=== PATIENT | female | born 1975 | race Caucasian/White ===

== ENCOUNTER 2016-12-09 12:35 | Observation (INO) ==
[2016-12-09] MEDS ORDERED: ONDANSETRON 4 MG/2 ML VIAL IV STA (13:47)
[2016-12-09] MEDS ORDERED: SODIUM CHLORIDE 0.9% 1,000 ML IV STA (13:47)
[2016-12-09] MEDS ORDERED: ONDANSETRON 4 MG/2 ML VIAL ONE (14:24)
[2016-12-09 14:30] LABS: Basophils # 0.1 10*3/uL (0.0-0.2); Basophils % 0.7 % (0.0-0.8); Eosinophils # 0.3 10*3/uL (0.0-0.87); Eosinophils % 2.6 % (0.00-10.9); Hematocrit 42.3 VOL% (35.7-47.0); Hemoglobin 14.2 GM/DL (12.0-16.0); Immature Granulocytes % 0.4 %; Immature Granulocytes Absolute 0.05 #; Mean Corpuscular HGB Conc 33.6 GM/DL (32-36); Mean Corpuscular Hemoglobin 29 PG (27-34); Mean Corpuscular Volume 85.1 FL (87-102); Monocytes # 0.9 10*3/uL (0.11-0.8); Monocytes % 7.7 % (1.7-12.7); Neutrophils # 7.1 10*3/uL (1.4-7.4); Neutrophils % 62.6 % (38.7-73.9); Platelet Count 296 T/CUMM (130-400); Red Blood Count 4.97 MC/CUMM (3.8-5.5); Red Cell Distribution Width 13.9 % (9.3-17.3); White Blood Count 11.4 T/CUMM (4-12)
[2016-12-09] MEDS ORDERED: HYDROmorphone 2 MG/1 ML VIAL IV STA ×2 (14:35→16:38)
[2016-12-09] MEDS ORDERED: HYDROmorphone 2 MG/1 ML VIAL ONE ×2 (14:36→16:41)
[2016-12-09 15:19] LABS: Alanine Aminotransferase 116 U/L (13-56); Albumin 4.4 G/DL (3.4-5.0); Alkaline Phosphatase 79 U/L (45-117); Aspartate Amino Transferase 66 U/L (0-37); Bilirubin,Total < 0.39 MG/DL (0.2-1.0); Blood Urea Nitrogen 22 MG/DL (7-18); Calcium 9.8 MG/DL (8.5-10.1); Glucose 78 MG/DL (74-106); Magnesium 2.4 MG/DL (1.8-2.4); Osmolality,Calculated 276.7 MOS/KG (273-304); Potassium 4.2 MMOL/L (3.5-5.1); Sodium 138 MMOL/L (136-145)
--- NOTE | 2016-12-09 15:30 | Emergency Department Note ---
Krishna Aguilar Rolonda, am scribing for, and in the presence of, Nick Hansen MD 13:56. Jade Aguilar Phillip K, MD, personally performed the services described in this documentation, ascribed by Sangeeta Keller in my presence, and it is both accurate and complete [id number] . Arrival - Arrival Chief Complaint: Abdominal / Flank Pain Stated Complaint: vomiting diarrhea pain surgery 11/29 ED Nursing Triage Note: pt had gastric sleeve placed on 11/29/16 and has had n/ v. +lt side abd pain Mode of Arrival: Ambulatory Limitations: No Limitations Source: Patient, Old Records Reviewed, RN Notes Reviewed Time Seen by Provider: 12/09/16 13:47 - History of Present Illness HPI Narrative: Pt is a 41 y/o female who presents to the ED with c/o left sided abdominal pain with an onset of x1 week ago. Pt has a PMHx of Fibromyalgia and PSHx of appendectomy, cholecystectomy, colonoscopy, and caesarean sections. Pt states that she had a Gastric sleeve on 11/29/[address] Otoole. Pt states that she has had pain s/p surgery which is progressively worsening. She states that she has not been able to maintain any fluids and that she has diarrhea 6-10 times a day. She confirms that she is taking Zofran for nausea but denies fever. No other complaint/pain in ED. Onset (ago): week(s) Consistency: constant Severity: moderate Severity scale (1-10): 5 Date of Last Menstrual Period: hyst Allergies/Adverse Reactions: Allergies Allergy/AdvReac Type Severity Reaction Status Date / Time adhesive tape Allergy Mild RASH Verified 11/29/16 06:48 morphine Allergy Mild RASH Verified 11/29/16 06:48 chloraprep Allergy Mild Redness of Uncoded 11/29/16 06:56 Skin Home Medications: Home Medications Medication Instructions Recorded Confirmed Type clonazePAM TAB [KlonoPIN] 1 mg PO BID tablet 12/01/16 Rx Cyclobenzaprine [Flexeril] 10 mg PO BID 12/09/16 12/09/16 History Gabapentin [Gabapentin] 800 mg PO TID 12/09/16 History Hydrocodone/Acetaminophen [[place] 1 each PO BID 12/09/16 12/09/16 History 10-325 Tablet] Omeprazole [Omeprazole] 40 mg PO DAILY 12/09/16 History Suvorexant [Belsomra] 10 mg PO DAILY 12/09/16 History Review of System - Review of System 12 point system: reviewed and no additional remarkable complaints except as stated - Review of System Constitutional: Absent: chills, fever Eyes: Absent: discharge Head/Ears/Nose/Throat: Absent: earache Respiratory: Absent: as per HPI Cardiovascular: Absent: chest pain Gastrointestinal: Present: abdominal pain (left side), vomiting, diarrhea Genitourinary female: Absent: dysuria Musculoskeletal: Absent: arm pain, back pain Skin: Absent: rash Neurological: Absent: headache Psychiatric: Absent: anxiety Endocrine: Absent: cold intolerance Hematological/Lymphatic: Absent: easy bleeding Allergic/Immunologic: Absent: facial swelling Medical,Surgical,& Family Hx - Medical History Psychological: History of: Depression Neurology: History of: Migraine (OCCASIONAL. DR SPRINGER.) No history of: Seizures HEENT: History of: Eye Problem (GLASSES) Rheumatology: History of;: Fibromyalgia Respiratory: Comment Only: Respiratory Problems (FLU VAC-YES; PNEU VAC- YES. SLEEP APOXIA 2 L AT BEDTIME.) Genitourinary: History of: Kidney Stones (CURRENTLY) Gastrointestinal: History of: GERD, GI Problems (IBS) Other: History of: Anesthesia Reactions (NAUSEA) - Surgical History HEENT Surgeries: Surgical HX of: Eye Surgery (EYE SURGERY X6), Tonsilectomy & Adenoidectomy Abdominal Surgeries: Surgical HX of: Abdominal Surgery (GASTRIC SLEEVE), Appendectomy, Cholecystectomy, Colonoscopy, EGD Reproductive Surgeries: Surgical HX of;: Section (X3), Hysterectomy Orthopedic Surgeries: Surgical HX of;: Implanted Devices (TITANIUM PLATES AND SCREWS.) - Family History Family History: Reports;: Family Cancer - Social History Smoking Status: Never smoker Frequency of Alcohol Use: None Type of Drug Use: None Exam Vital Signs: Vital Signs Temperature 97.6 F 12/09/16 12:45 Pulse Rate 92 H 12/09/16 14:45 Respiratory Rate 18 12/09/16 14:45 Blood Pressure 159/106 12/09/16 14:45 O2 Sat by Pulse Oximetry 100 12/09/16 14:45 - General General appearance: alert, in no apparent distress - Head Head exam: Present: atraumatic, normocephalic - Eye Eye exam: Present: PERRL, EOMI - ENT ENT exam: Present: mucous membranes moist. Absent: mucous membranes dry - Neck Neck exam: Present: full ROM. Absent: tenderness - Chest Chest inspection: Present: symmetric chest wall rise. Absent: tenderness - Respiratory Respiratory exam: Present: normal lung sounds bilaterally. Absent: wheezes - Cardiovascular Cardiovascular exam: Present: normal rhythm, tachycardia - Abdominal Exam Abdominal exam: Present: soft, tenderness (LUQ and LLQ), hypoactive bowel sounds - Extremities Exam Extremities exam: Present: full ROM. Absent: tenderness - Back Exam Back exam: Present: full ROM. Absent: tenderness - Neurological Exam Neurological exam: Present: alert, oriented X3, CN II-XII intact - Psychiatric Psychiatric exam: Present: normal affect, normal mood - Skin Skin exam: Present: warm, dry, intact, normal color. Absent: rash Course Course Narrative: Dr. Uriarte evaluated patient in the ED. Results - Labs CBC & BMP: 12/09/16 14:23 12/09/16 14:23 Lab Results: I have reviewed the patients labs Labs: Laboratory Tests 12/09/16 14:23 WBC 11.4 RBC 4.97 Hgb 14.2 Hct 42.3 MCV 85.1 L Plt Count 296 [place] # (Auto) 0.9 H Laboratory Tests 12/09/16 14:23 Sodium 138 Potassium 4.2 Chloride 103 Carbon Dioxide 22 Anion Gap 17.2 H BUN 22 H GFR Calculation 135 BUN/Creatinine Ratio 36.00 H Glucose 78 AST 66 H ALT 116 H Globulin 3.6 H Disposition Clinical Impression: Abdominal pain, Vomiting and diarrhea Case discussed with: patient Additional Instructions: Instructions per Dr. Hall
--- NOTE | 2016-12-09 15:38 | CT Report ---
Exam: CT abdomen pelvis w con Date: 12/09/2016 1:48 PM Comparison: None Indication: Gastric band surgery abdominal pain vomiting Total DLP: 1678.8 mGy*cm Technical: Images were obtained from the lung bases to the iliac crest continuation through the pelvis with 100 cc of Omnipaque 350 with axial sagittal coronal imaging available for review. Dose reduction was performed with decreasing kv and mA and automated exposure. Oral contrast was administered. Findings: Lung bases: No obvious infiltrate or effusion. Liver and Spleen: Minimal fatty infiltration liver. The hepatic and portal veins and spleen are unremarkable. Gallbladder and Pancreas: Prior cholecystectomy. The pancreas is unremarkable. Adrenals: Unremarkable Kidneys: Both kidneys are equally perfused and demonstrate no evidence for obstructive uropathy. Stomach: Surgical changes are present along the anterior wall of the stomach laterally. No obvious extravasation of contrast or evidence of pneumoperitoneum otherwise noted. Retroperitoneum: Small para-aortic node on the left present less than 1 cm in size Aorta and IVC: No obvious aneurysm aorta vessels and IVC are unremarkable. Bowel and Mesentery: Moderate fecal debris present. No evidence of diverticulosis or diverticulitis or appendicitis present. No free fluid present. Along the anterior abdominal wall subcutaneous tissue there is a area of soft tissue density measuring 4.2 cm. Pelvis: Bladder: Incompletely distended with contrast and fluid. Fluid: No free fluid identified. Lymph nodes: Small nodes in the inguinal regions bilaterally. Pelvic organs: Phleboliths are present in the true pelvis. The uterus surgically absent. Osseous structures: Degenerative change present thoracolumbar spine. The bony pelvis is otherwise intact. Impression: 1. Surgical changes along the lateral aspect of the stomach extending anteriorly with no obvious extravasation of contrast or pneumoperitoneum 2. Subcutaneous edema present in the anterior abdominal wall measuring up to 4.2 cm just off midline towards the left. 3. Prior hysterectomy with phleboliths in the left true pelvis. 4. Small node in the left retroperitoneum. 5. Previous cholecystectomy PROCEDURE INTERPRETED AT [facility] DEPARTMENT OF RADIOLOGY Final Report Signed by: Dr. Gerson Gil
[2016-12-09] MEDS ORDERED: hydrALAZINE 20 MG/1 ML VIAL IV PRN (16:00)
[2016-12-09] MEDS ORDERED: LACTATED RINGERS 1,000 ML IV ONE (16:08)
--- NOTE | 2016-12-09 16:13 | General Surg History&Physical ---
Assessment and Plan (1) Vomiting and diarrhea Status: Acute Assessment and plan: Impression: Status post vertical sleeve gastrectomy, now with dehydration secondary to nausea, vomiting, and diarrhea Plan: CT scan performed and appears normal for this postoperative patient. There is no evidence of leak. There is no extravasation of contrast or any fluid. There is no significant pneumoperitoneum. We will plan to admit for rehydration. I am concerned for C. difficile given her recent antibiotics and the history of her diarrhea. Will empirically start Flagyl and check stool for C. difficile. We will also give Diflucan for the yeast infection 3 days. Anti-emetics. Suspect she will feel better once her dehydration has improved. Current Visit: Yes History of Present Illness Chief complaint: Nausea vomiting and diarrhea History of present illness: Ms. Araiza is a 41 year old female who underwent vertical sleeve gastrectomy on Monday of last week. She had an uncomplicated hospital course and was discharged 2 days later. At the time of discharge she had no significant nausea and no vomiting. When she got home she began to have diarrhea. She states she has had diarrhea since last . She has 6-10 very loose watery stools per day and states that they "smell sweet". She has had some mild nausea since that time which has been stable but 2 days ago began vomiting. She has had no fever. She also complains of a yeast infection. She had perioperative antibiotics. She also has had antibiotics before surgery for a urinary tract infection. She has no shortness of breath or chest pain. She has no worsening abdominal pain. Only complains of mild to moderate pain that has been well controlled just to the left of midline at the larger incision. She was mildly tachycardic to 115 upon arrival but once she got into the room and was seated in in bed this resolved before her IV fluids were given. Home Medications Medication Instructions Recorded Confirmed Type clonazePAM TAB [KlonoPIN] 1 mg PO BID tablet 12/01/16 12/09/16 Rx Cyclobenzaprine [Flexeril] 10 mg PO BID 12/09/16 12/09/16 History Gabapentin [Gabapentin] 400 mg PO BID 12/09/16 12/09/16 History Hydrocodone/Acetaminophen [[place] 1 each PO BID 12/09/16 12/09/16 History 10-325 Tablet] Omeprazole [Omeprazole] 40 mg PO BID 12/09/16 12/09/16 History Suvorexant [Belsomra] 10 mg PO BEDTIME 12/09/16 12/09/16 History Allergies Allergy/AdvReac Type Severity Reaction Status Date / Time adhesive tape Allergy Mild RASH Verified 11/29/16 06:48 morphine Allergy Mild RASH Verified 11/29/16 06:48 chloraprep Allergy Mild Redness of Uncoded 11/29/16 06:56 Skin Medical,Surgical,& Family Hx - Medical History Psychological: History of: Depression Neurology: History of: Migraine (OCCASIONAL. DR SPRINGER.) No history of: Seizures HEENT: History of: Eye Problem (GLASSES) Rheumatology: History of;: Fibromyalgia Respiratory: Comment Only: Respiratory Problems (FLU VAC-YES; PNEU VAC- YES. SLEEP APOXIA 2 L AT BEDTIME.) Genitourinary: History of: Kidney Stones (CURRENTLY) Gastrointestinal: History of: GERD, GI Problems (IBS) Other: History of: Anesthesia Reactions (NAUSEA) - Surgical History HEENT Surgeries: Surgical HX of: Eye Surgery (EYE SURGERY X6), Tonsilectomy & Adenoidectomy Abdominal Surgeries: Surgical HX of: Abdominal Surgery (GASTRIC SLEEVE), Appendectomy, Cholecystectomy, Colonoscopy, EGD Reproductive Surgeries: Surgical HX of;: Section (X3), Hysterectomy Orthopedic Surgeries: Surgical HX of;: Implanted Devices (TITANIUM PLATES AND SCREWS.) Additional Surgical History: Recent vertical sleeve gastrectomy - Family History Family History: noncontributory Family History: Reports;: Family Cancer - Social History Smoking Status: Never smoker Frequency of Alcohol Use: None Type of Drug Use: None Exam - Constitutional Vitals: Period Temp Pulse Resp BP Sys/Ward Pulse Ox Last 24 Hr 97.6 F-97.6 F 85-115 16-20 120-159/79-107 94-100 General appearance: no acute distress - Head Head exam: Present: normocephalic - ENT Mouth exam: Present: dry mucosa - Respiratory Respiratory exam: Present: clear to auscultation bilaterally - Cardiovascular Cardiovascular exam: Present: RRR - GI/Abdominal GI/Abdominal exam: Present: normal bowel sounds, soft (Morbidly obese, abdomen is soft and appropriately tender near the incisions.) - Extremities Exam Extremities exam: Present: normal inspection - Back Exam Back exam: Present: normal inspection - Neurological Exam Neurological exam: Present: alert, oriented X3 Speech: Present: normal - Skin Skin exam: Present: normal color 12 point system: reviewed and no additional remarkable complaints except as stated Results - Labs CBC & BMP: 12/09/16 14:23 12/09/16 14:23 Lab Results: I have reviewed the past 24 hour labs
[2016-12-09] MEDS ORDERED: PROCHLORPERAZINE 5 MG TABLET PO PRN (16:21)
[2016-12-09] MEDS ORDERED: HYOSCYAMINE 0.5 MG/1 ML AMP IV SCH (16:30)
[2016-12-09] MEDS: FLUCONAZOLE 100 MG TABLET PO SCH (18:17)
[2016-12-09] MEDS: ONDANSETRON 4 MG/2 ML VIAL IV PRN (18:31)
[2016-12-09] MEDS: HYDROcod/ACETAMIN 7.5-325 MG/15 ML UDCUP PO PRN ×2 (18:31→22:22)
[2016-12-09] MEDS: metroNIDAZOLE INJ 500 MG in PREMIX 1 EACH IV SCH (18:31)
[2016-12-09] MEDS: LACTATED RINGERS 1,000 ML IV SCH (19:27)
[2016-12-09] MEDS: PROMETHAZINE INJ 25 MG in SODIUM CHLORIDE 0.9% 50 ML IV PRN (23:12)
[2016-12-10] MEDS: metroNIDAZOLE INJ 500 MG in PREMIX 1 EACH IV SCH ×4 (00:15→17:24)
[2016-12-10] MEDS: LACTATED RINGERS 1,000 ML IV SCH ×5 (03:46→20:09)
[2016-12-10 05:41] LABS: Calcium 8.8 MG/DL (8.5-10.1); Osmolality,Calculated 282.1 MOS/KG (273-304); Potassium 3.8 MMOL/L (3.5-5.1)
[2016-12-10] MEDS: PANTOPRAZOLE 40 MG VIAL IV SCH (08:41)
[2016-12-10] MEDS: HYDROcod/ACETAMIN 7.5-325 MG/15 ML UDCUP PO PRN ×3 (08:42→20:22)
[2016-12-10] MEDS: ENOXAPARIN 40 MG/0.4 ML SYRINGE SUBCUT SCH (08:42)
[2016-12-10] MEDS: ONDANSETRON 4 MG/2 ML VIAL IV PRN ×2 (08:42→15:25)
[2016-12-10] MEDS: FLUCONAZOLE 100 MG TABLET PO SCH (08:42)
[2016-12-10] MEDS: PROMETHAZINE INJ 25 MG in SODIUM CHLORIDE 0.9% 50 ML IV PRN ×2 (10:04→20:09)
[2016-12-10] MEDS: SIMETHICONE CHEW 80 MG TABLET PO SCH ×2 (15:25→20:24)
--- NOTE | 2016-12-10 18:33 | General Surgery Progress Note ---
Assessment and Plan (1) Vomiting and diarrhea Status: Acute Assessment and plan: This has resolved. Diarrhea is firming up. No further vomiting. Tolerating liquids well. Continue IV fluids and hydration. C. difficile was negative. Will stop antibiotics and continue to hydrate as needed Current Visit: Yes Subjective Patient reports: Present: no new complaints, feels better, pain is less, bowel movement (The patient states that her stools are more formed today), nausea, afebrile. Absent: vomiting Exam - Constitutional Vitals: Period Temp Pulse Resp BP Sys/Ward Pulse Ox Last 24 Hr 97.2 F-98.2 F 72-87 18-20 114-143/60-73 93-99 General appearance: no acute distress, over weight - Head Head exam: Present: normal inspection, normocephalic - Eye Eye exam: Present: EOMI. Absent: scleral icterus Pupils: Present: CASSIE - ENT ENT exam: Present: normal exam Mouth exam: Present: normal external inspection, normal voice - Neck Neck exam: Present: normal inspection, trachea midline - Respiratory Respiratory exam: Present: clear to auscultation bilaterally. Absent: accessory muscle use, chest wall tenderness - Cardiovascular Cardiovascular exam: Present: RRR. Absent: systolic murmur, tachycardia - GI/Abdominal GI/Abdominal exam: Present: normal bowel sounds, tenderness (Expected postoperative tenderness with clean incisions), soft. Absent: rebound - Extremities Exam Extremities exam: Present: normal inspection, normal capillary refill - Back Exam Back exam: Present: normal inspection - Neurological Exam Neurological exam: Present: alert, oriented X3 Speech: Present: normal - Skin Skin exam: Present: normal color, warm Results - Labs CBC & BMP: 12/09/16 14:23 12/10/16 03:02 Quality Measures - Stroke Symptom Onset Unknown: No
[2016-12-11] MEDS: LACTATED RINGERS 1,000 ML IV SCH ×2 (03:24→10:05)
[2016-12-11] MEDS: PANTOPRAZOLE 40 MG VIAL IV SCH (08:24)
[2016-12-11] MEDS: FLUCONAZOLE 100 MG TABLET PO SCH (08:26)
[2016-12-11] MEDS: SIMETHICONE CHEW 80 MG TABLET PO SCH (08:26)
[2016-12-11] MEDS: ENOXAPARIN 40 MG/0.4 ML SYRINGE SUBCUT SCH (08:26)
[2016-12-11] MEDS: HYDROcod/ACETAMIN 7.5-325 MG/15 ML UDCUP PO PRN (10:48)
[2016-12-11] MEDS: ONDANSETRON 4 MG/2 ML VIAL IV PRN (10:49)
[2016-12-11 11:41] VITALS: BP 123/72
--- NOTE | 2016-12-11 12:14 | Discharge Summary ---
Hospital Course - Hospital Course Hospital Course: This patient was admitted with volume depletion and placed on IV fluids. She had diarrhea and C. difficile was negative 2. She states that she has had problems with diarrhea but only got better with Questran and that has been stopped since her surgery so she thinks this is why she is having diarrhea. She was tolerating clear liquids with no nausea or vomiting and she was requesting to be discharged home. She was discharged home with follow-up with Dr. Chaidez on Monday. Diagnosis - Discharge Diagnosis (1) Vomiting and diarrhea Status: Acute Specialty Discharge - Follow Up or Referrals Follow up with: Devan Chaidez MD [Physician] - (KEEP SCHEDULED FOLLOW UP APPOINTMENT ) Discharge Plan - Discharge Data Disposition: Disch To Home/Self Care Condition at Discharge: Stable Discharge Diet: advance to your usual diet Activity: no lifting Hygiene: may shower Weight Bearing at Discharge: weight bear as tolerated Driving: not until seen by doctor Contact your physician if you experience:: fever over 101, Difficulty voiding, Redness or swelling, Nausea/Vomiting, Shortness of breath, Bleeding, pain uncontrolled by pain medications Wound / Dressing Care Instructions: It is okay to shower. Do not scrub the incision aggressively or submerge it under water. - Discharge Medications New HYDROcod/ACETAM 7.5-325MG/15ML 15 ml PO Q4H PRN #300 ml PRN Reason: Pain Moderate (4-7) Continue Gabapentin 400 mg PO BID Omeprazole 40 mg PO BID Multivitamin [Multivitamins] 1 each PO DAILY clonazePAM TAB [KlonoPIN] 1 mg PO BID tablet Suvorexant [Belsomra] 10 mg PO BEDTIME Cyclobenzaprine [Flexeril] 10 mg PO BID Discontinued Hydrocodone/Acetaminophen [[place] 10-325 Tablet] 1 each PO BID - Follow Up or Referral Follow Up: Devan Chaidez MD [Physician] - (KEEP SCHEDULED FOLLOW UP APPOINTMENT ) - Forms/Instructions Instructions: Acute Nausea and Vomiting (DC) Exam - Constitutional Vitals: Period Temp Pulse Resp BP Sys/Ward Pulse Ox Last 24 Hr 97.2 F-98.2 F 52-77 18-20 115-150/71-81 95-99 General appearance: no acute distress, over weight - Head Head exam: Present: normal inspection, normocephalic - Eye Eye exam: Present: EOMI Pupils: Present: CASSIE - ENT ENT exam: Present: normal exam - Neck Neck exam: Present: normal inspection - Respiratory Respiratory exam: Present: clear to auscultation bilaterally. Absent: accessory muscle use, chest wall tenderness - Cardiovascular Cardiovascular exam: Present: regular rate and rhythm. Absent: systolic murmur , tachycardia - GI/Abdominal GI/Abdominal exam: Present: tenderness (Expected postoperative tenderness), soft. Absent: rebound - Extremities Exam Extremities exam: Present: normal inspection, normal capillary refill - Back Exam Back exam: Present: normal inspection - Neurological Exam Neurological exam: Present: alert, oriented X3 - Psychiatric Psychiatric exam: Present: normal affect, normal mood - Skin Skin exam: Present: normal color, warm Discharge Results Procedures and tests throughout hospitalization: Pending Orders 12/11/16 11:45 cdiff [C. Diff Toxins A & B] Routine DS: Provider Date of admission: 12/09/16 16:01 Primary care physician: [place]ia Ventura MD Attending physician on admission: Devan Chaidez MD Consults: 12/09/16 17:54 Consult to Dietitian [CONS] Routine Reason for Dietitian: Dietary Consult Consult to Pastoral Services [CONS] Routine Comment: Pastoral Screen: Request Application Support Consultant Visit Pastoral Screen Source of Request: Patient Discharging clinician: Manuel Uriarte MD Expected date of discharge: 12/11/16
== END 2016-12-11 13:50 | disposition home or self-care (01) ==
LOC: N.ED 12:35 → N.EDINP 12:35 → N.3E 16:55
PROVIDERS: ADMIT Surgery; ATTEND Surgery

== ENCOUNTER 2017-01-02 10:53 | Observation (INO) ==
[2017-01-02] MEDS ORDERED: PROMETHAZINE 25 MG/1 ML VIAL IM PRN (13:00)
[2017-01-02] MEDS ORDERED: LACTATED RINGERS 1,000 ML IV ONE (13:19)
[2017-01-02] MEDS ORDERED: SCOPOLAMINE 1.5 MG PATCH TRANSDERM SCH (13:30)
[2017-01-02] MEDS: HYDROmorphone 2 MG/1 ML VIAL IV PRN ×3 (13:30→22:57)
[2017-01-02] MEDS: ONDANSETRON 4 MG/2 ML VIAL IV PRN ×3 (13:33→23:13)
[2017-01-02] MEDS: LACTATED RINGERS 1,000 ML IV SCH (13:35)
[2017-01-02 13:46] LABS: Basophils # 0.1 10*3/uL (0.0-0.2); Basophils % 0.6 % (0.0-0.8); Eosinophils # 0.3 10*3/uL (0.0-0.87); Eosinophils % 3.4 % (0.00-10.9); Hematocrit 41.2 VOL% (35.7-47.0); Hemoglobin 13.9 GM/DL (12.0-16.0); Immature Granulocytes % 0.2 %; Immature Granulocytes Absolute 0.02 #; Lymphocytes # 2.1 10*3/uL (1.4-4.0); Lymphocytes % 25.7 % (21.3-54.2); Mean Corpuscular HGB Conc 33.7 GM/DL (32-36); Mean Corpuscular Hemoglobin 29 PG (27-34); Mean Corpuscular Volume 85.3 FL (87-102); Mean Platelet Volume 11.6 FL (9.6-12.0); Monocytes # 0.7 10*3/uL (0.11-0.8); Monocytes % 8.2 % (1.7-12.7); Neutrophils # 5.1 10*3/uL (1.4-7.4); Neutrophils % 61.9 % (38.7-73.9); Platelet Count 197 T/CUMM (130-400); Red Blood Count 4.83 MC/CUMM (3.8-5.5); Red Cell Distribution Width 14.6 % (9.3-17.3); White Blood Count 8.2 T/CUMM (4-12)
[2017-01-02 14:08] LABS: Calcium 9.4 MG/DL (8.5-10.1); Osmolality,Calculated 283.3 MOS/KG (273-304); Potassium 3.5 MMOL/L (3.5-5.1)
[2017-01-02 14:12] LABS: Albumin 4.1 G/DL (3.4-5.0); Bilirubin,Direct 0.11 MG/DL (0.0-0.20); Bilirubin,Indirect 0.4 MG/DL (0.0-1.0); Bilirubin,Total 0.5 MG/DL (0.2-1.0); Total Protein 7.3 G/DL (6.4-8.3)
--- NOTE | 2017-01-02 15:03 | CT Report ---
CT of the abdomen and pelvis with intravenous and oral contrast. Indication: Generalized abdominal pain. 100 cc Omni 350. Axial images were obtained with sagittal and coronal 2-D reconstructions. Comparison is made with the previous exam of December 09, 2016. The heart is normal in size. The lung bases are clear. There is no pericardial or pleural effusion. There is a mild fatty infiltration of the liver. The gallbladder has been removed. There is no biliary ductal dilatation. No focal liver lesions are identified. The spleen is normal in size. There are postsurgical changes involving the stomach, with a suture line present. The adrenal glands are normal in size and configuration. The kidneys are normal in size, location, and contour. No focal liver lesions are identified. No pancreatic abnormality is seen. The abdominal aorta is of normal caliber. There is no retroperitoneal or mesenteric lymphadenopathy. The loops of small intestine are not dilated. There is no small intestinal wall thickening. The terminal ileum presents a normal appearance. The appendix presents a normal appearance. There is moderate fecal material within the cecum. The colon is not dilated. There is no colonic wall thickening. There are a few scattered diverticuli. The urinary bladder presents a normal appearance. There is no inguinal or iliac chain lymphadenopathy. No free fluid or free air is noted within the peritoneal cavity. The patient is status post hysterectomy. Within the superficial soft tissues of the anterior abdomen, there is slight high density material, consistent with the recent surgery. This has diminished compared to the previous exam. No discrete fluid collection RAR. Osseous structures are unremarkable. Impression: 1. Interval decrease in the amount of abnormal opacity in the central abdominal subcutaneous fat. 2. Fatty liver. 3. No acute intra-abdominal process is seen. The CT exam was performed using one or more of the following dose reduction techniques: Automated exposure control, adjustment of the mA and/or kV according to patient size, or use of iterative reconstruction technique. PROCEDURE INTERPRETED AT [facility] DEPARTMENT OF RADIOLOGY Final Report Signed by: Dr. Virgen Whelan
[2017-01-02] MEDS: PANTOPRAZOLE 40 MG VIAL IV SCH (15:31)
[2017-01-02] MEDS: HYOSCYAMINE 0.125 MG TABLET PO SCH ×3 (15:33→23:13)
--- NOTE | 2017-01-02 15:59 | Event Note ---
Patient admitted from clinic. See the H&P from clinic for full details. In brief this is a 41-year-old female with a history of irritable bowel syndrome who underwent vertical sleeve gastrectomy approximately 1 month ago. Her initial postoperative course was complicated by diarrhea and dehydration. The diarrhea resolved and she has been constipated since then. She also had a kidney stone requiring stent placement and subsequent retrieval. She was admitted with persistent nausea and vomiting and dehydration. Her lab work and CT scan reviewed. Only significant abnormality is quite a bit of stool in the colon. She is very constipated. This may be contributing to some of her nausea and vomiting. We will start Colace. I will consult GI for management of her constipation. Continue IV fluids.
[2017-01-02] MEDS ORDERED: SODIUM PHOSPHATE ENEMA 133 ML BOTTLE RECTAL ONE ×2 (18:12→18:14)
--- NOTE | 2017-01-02 18:21 | Event Note ---
Patient seen and examined. Records reviewed. Full note to follow tomorrow. 49 -year-old female 1 month status post gastric sleeve surgery for obesity has history of irritable bowel syndrome with diarrhea predominant symptoms for over 20 years. She has recently had increased constipation which is a significant change for her. She also complains of off and on nausea and vomiting. She has lost 40 pounds weight since the surgery. Patient had intractable nausea and vomiting today and was admitted. Her BUN/creatinine ratio was elevated. She denies subjective fever/chills or genitourinary symptoms. CT abdomen/pelvis done today reviewed with moderate increased stool and no inflammatory changes seen. Laboratory data reviewed with electrolytes including calcium without significant abnormality. On exam, patient is alert in no acute distress. Abdomen is soft and nondistended/nontender, bowel sounds present. No organomegaly felt. Impression: #1 change in bowel habits-with recent onset constipation in patient with long history of IBS-D symptoms #2 nausea and vomiting -with associated dehydration #3 recent gastric sleeve surgery Recommendations: Agree with plan for now with IV fluids and anti-nausea treatment. Try 2 fleets enemas this evening and give soapsuds enema if no results. Obtain TSH level given new onset constipation.
[2017-01-02 19:02] LABS: Apearance,Urine CLEAR (Clear); Bilirubin,Urine Negative (Negative); Blood, Urine Negative (Negative); Glucose,Urine (UA) Negative (Negative); Ketones,Urine 80 mg/dL (Negative); Mucus,Urine Occasional /LPF (Occasional); Nitrite,Urine Negative (Negative); Protein,Urine Negative; RBC,Urine 4 /HPF (0-4); Squamous Epithelial Cell,Urine Occasional /HPF (0-10); Urine Color Yellow (Yellow); Urine Specific Gravity > 1.060 (1.001-1.035); Urine Urobilinogen < 2.0 EU/DL (0.2-1.0); WBC,Urine 1 /HPF (0-6)
[2017-01-02] MEDS ORDERED: DOCUSATE SODIUM 100 MG/10 ML UDCUP PO SCH (21:00)
[2017-01-03] MEDS: HYOSCYAMINE 0.125 MG TABLET PO SCH ×6 (02:53→22:33)
[2017-01-03] MEDS: HYDROmorphone 2 MG/1 ML VIAL IV PRN ×6 (02:54→20:48)
[2017-01-03] MEDS: LACTATED RINGERS 1,000 ML IV SCH ×5 (03:39→23:28)
[2017-01-03] MEDS: ONDANSETRON 4 MG/2 ML VIAL IV PRN ×4 (06:01→20:00)
[2017-01-03 06:10] LABS: Calcium 8.4 MG/DL (8.5-10.1); Osmolality,Calculated 282.3 MOS/KG (273-304); Potassium 3.5 MMOL/L (3.5-5.1)
[2017-01-03] MEDS ORDERED: CYCLOBENZAPRINE 10 MG TABLET PO PRN (08:54)
--- NOTE | 2017-01-03 09:30 | Event Note ---
Had small bowel movement with Fleet's enema last night. Nothing significant per the patient. Today she is feeling a little bit better her nausea is slightly better. She was tolerating her diet without any vomiting. Abdominal pain is better controlled. Abdomen is soft nondistended with no significant tenderness appreciated. Yesterday she was mildly tender but I do not elicit any significant tenderness today. TSH is pending. Other lab work noted. Will continue with IV fluids, rehydration, continue current diet, will add Compazine. She has a history of severe nausea and vomiting with her previous pregnancies. She may have a low threshold for nausea and vomiting. Bowel regimen per gastroenterology. I think that once her constipation improves it may also improve her nausea and vomiting.
[2017-01-03] MEDS: GABAPENTIN 400 MG CAPSULE PO SCH ×2 (09:35→20:48)
[2017-01-03] MEDS: clonazePAM 0.5 MG TABLET PO SCH ×2 (09:36→20:47)
[2017-01-03] MEDS: PANTOPRAZOLE 40 MG VIAL IV SCH (09:36)
--- NOTE | 2017-01-03 10:10 | Gastrointestinal Consult Note ---
Assessment and Plan (1) Abdominal pain Status: Acute Assessment and plan: 01/03-1 month postoperative gastrectomy now presenting with constipation and nausea vomiting. History of IBS symptoms primarily diarrhea associated. One week since last bowel movement. CT findings noted as below. TSH is pending. Soapsuds enema pending this morning. Continue to monitor present time. Plan an addendum to followed by Dr. Paez. Current Visit: No History of Present Illness Chief complaint: Constipation, nausea vomiting History of present illness: Ms. Araiza is a 41 year old female who was admitted to the hospital on yesterday with persistent nausea and vomiting as well as findings of dehydration. Patient underwent vertical sleeve gastrectomy with Dr. Brito in approximately 1 month ago. During her postoperative course, patient had increase in diarrhea stools until approximately 1 week ago. Patient does have reported history of irritable bowel syndrome with primarily diarrheal stools with no reports of constipation. She states that approximately a week ago, the diarrhea stools stopped and she has not had a bowel movement since this time. She states that over the last several days, she has tried manual disimpaction without success. She also had onset of nausea and vomiting however denies any coffee-ground emesis or hematemesis. Patient has lost approximately 40 pounds since her surgery 1 month ago. She was readmitted on 12/09 following surgery with complaints of diarrhea however her stools were negative for Clostridium difficile at that time. She states that over the last several days, she has had increased abdominal discomfort and distention. On admission she had a CT of the abdomen with IV and oral contrast which showed no acute abdominal process is however moderate fecal material within the cecum with no colonic dilation or wall thickening. She currently has a TSH which is still pending. She has no prior history of endoscopy in the past. She was initially given a fleets enema on last night with no results. She is to have soapsuds enema this morning to help facilitate a bowel movement. Home Medications Medication Instructions Recorded Confirmed Type Cyclobenzaprine [Flexeril] 10 mg PO BID PRN 12/09/16 01/02/17 History Gabapentin 400 mg PO BID 12/09/16 01/02/17 History Omeprazole 40 mg PO BID 12/09/16 01/02/17 History Ondansetron [Ondansetron Odt] 4 mg PO Q4-6H PRN 12/31/16 01/02/17 History clonazePAM TAB [KlonoPIN] 1 mg PO BID 12/31/16 01/02/17 History Hydrocodone/Acetaminophen [Lacey 10 mg PO BID 01/02/17 01/02/17 History 10-325 Tablet] Metoclopramide Tab [Reglan Tab] 5 mg PO ACHS 01/02/17 01/02/17 History Promethazine Tab [Phenergan Tab] 25 mg PO Q6H PRN 01/02/17 01/02/17 History Allergies Allergy/AdvReac Type Severity Reaction Status Date / Time adhesive tape Allergy Mild RASH Verified 11/29/16 06:48 morphine Allergy Mild RASH Verified 11/29/16 06:48 chloraprep Allergy Mild Redness of Uncoded 11/29/16 06:56 Skin Medical,Surgical,& Family Hx - Medical History Psychological: History of: Anxiety Disorders, Depression, Previous Suicide Attempt (3 years and 18 years ago.) No history of: ADHD, Behavior Problems, Psychiatric/Substance Abuse Tx, Schizophrenia, Violent Behavior, Psychiatric Problems Neurology: History of: Migraine (OCCASIONAL. DR SPRINGER.) No history of: Brain Aneurysm, Cerebral Hemorrhage, Cerebrovascular Accident , Cerebral Palsy, Multiple Sclerosis, Parkinson's Disease, Peripheral Neuropathy , Seizures, TIA, Vertigo, Neurologocal Cancer HEENT: History of: Eye Problem (GLASSES) Rheumatology: History of;: Fibromyalgia Respiratory: History of: Respiratory Problems (FLU VAC-YES; PNEU VAC- YES. SLEEP APOXIA 2 L AT BEDTIME.) Renal: No history of: Renal (Kidney) Cancer, Dialysis, Renal Failure, Renal Problems Genitourinary: History of: Kidney Stones (lithotripsy and stent placement.) No history of: Bladder Problem, Recurring Urinary Tract Infections, Genitourinary Cancer, Problems Gastrointestinal: History of: GERD, GI Problems (IBS) Other: History of: Anesthesia Reactions (NAUSEA) - Surgical History Thoracic Surgeries: Surgical HX of;: Lithotripsy Patient denies;: Kidney (Renal Surgery), Nephrectomy, Lobectomy Neurologic Surgeries: Patient denies: Brain Aneurysm, Cerebral Hemorrhage, Neurologic Surgery HEENT Surgeries: Surgical HX of: Eye Surgery (EYE SURGERY X6), Tonsilectomy & Adenoidectomy Abdominal Surgeries: Surgical HX of: Abdominal Surgery (GASTRIC SLEEVE), Appendectomy, Cholecystectomy, Colonoscopy, EGD, Hernia Repair Reproductive Surgeries: Surgical HX of;: Section (X3), Hysterectomy Patient denies;: Cystoscopy, Genitourinary Surgery Orthopedic Surgeries: Surgical HX of;: Implanted Devices (TITANIUM PLATES AND SCREWS.) - Family History Family History: Reports;: Family Cancer, Family Hypertension - Social History Smoking Status: Former smoker Frequency of Alcohol Use: None Type of Drug Use: None 12 point system: reviewed and no additional remarkable complaints except as stated - Constitutional Constitutional: Present: as per HPI, weight loss (40 pounds postgastrectomy) - EENT Eyes: Present: as per HPI Ears: Present: as per HPI Nose, mouth and throat: Present: as per HPI - Cardiovascular Cardiovascular: Present: as per HPI - Respiratory Respiratory: Present: as per HPI - Gastrointestinal Gastrointestinal: Present: as per HPI, abdominal pain, constipation, nausea, vomiting - Genitourinary Genitourinary: Present: as per HPI - Musculoskeletal Musculoskeletal: Present: as per HPI - Neurological Neurological: Present: as per HPI - Psychiatric Psychiatric: Present: as per HPI - Endocrine Endocrine: Present: as per HPI - Hematologic/Lymphatic Hematologic/Lymphatic: Present: as per HPI Exam - Constitutional Vitals: Period Temp Pulse Resp BP Sys/Ward Pulse Ox Last 24 Hr 97.0 F-99.3 F 77-97 16-20 102-125/54-83 95-98 General appearance: no acute distress, over weight - Head Head exam: Present: normal inspection, normocephalic - Eye Eye exam: Present: other (Lids and conjunctivae are unremarkable). Absent: scleral icterus - ENT ENT exam: Present: normal exam, normal oropharynx - Neck Neck exam: Present: normal inspection - Respiratory Respiratory exam: Present: clear to auscultation bilaterally. Absent: rales, rhonchi, wheezes - Cardiovascular Cardiovascular exam: Present: regular rate and rhythm. Absent: diastolic murmur , JVD, systolic murmur - GI/Abdominal GI/Abdominal exam: Present: normal bowel sounds, soft. Absent: ascites, distended, mass, organomegaly, tenderness - Extremities Exam Extremities exam: Present: normal inspection, full ROM - Back Exam Back exam: Present: normal inspection - Neurological Exam Neurological exam: Present: alert, oriented X3 - Psychiatric Psychiatric exam: Present: normal affect, normal mood - Skin Skin exam: Present: normal color, warm, dry Results - Labs CBC & BMP: 01/02/17 13:34 01/03/17 05:16 Lab Results: I have reviewed the past 24 hour labs - Diagnostic Findings Procedure: CT Abdomen and Pelvis: report reviewed by me
[2017-01-03] MEDS: METOCLOPRAMIDE 5 MG TABLET PO SCH ×3 (11:45→20:47)
[2017-01-04] MEDS: HYDROmorphone 2 MG/1 ML VIAL IV PRN ×3 (00:07→08:02)
[2017-01-04] MEDS: ONDANSETRON 4 MG/2 ML VIAL IV PRN ×2 (03:34→08:03)
[2017-01-04] MEDS: HYOSCYAMINE 0.125 MG TABLET PO SCH ×2 (03:47→09:09)
[2017-01-04] MEDS: LACTATED RINGERS 1,000 ML IV SCH (05:12)
[2017-01-04 08:15] VITALS: BP 103/59
[2017-01-04] MEDS ORDERED: PROCHLORPERAZINE 5 MG TABLET PO PRN (08:16)
--- NOTE | 2017-01-04 08:28 | Discharge Summary ---
Hospital Course - Hospital Course Hospital Course: Patient is a 41-year-old female status post recent robotic gastrectomy sleeve who returned with direct admission from the office with intractable nausea and vomiting. She did have constipation which is now also resolved. She is somewhat improved and is tolerating oral intake better although she still has residual nausea and vomiting again, improved on her current regimen. She is voiding without difficulty and there are no electrolyte abnormalities identified. She was discharged home on scopolamine patch, Compazine, and continued Zofran. She also missed a routine follow-up appointment for prescription refills and requests refills on her home dose hydrocodone, Klonopin , and Prilosec which were provided based on Dr. Chaidez's instructions. She is instructed to avoid Reglan and Phenergan unless instructed otherwise by Dr. Chaidez on outpatient follow-up. She is to /fu Dr. Chaidez in 1 week. She should return to the ER doctors offices if she is unable to tolerate fluids and or notices a decrease in her voiding. Patient expressed understanding and wishes to discharge home today. No complication noted. Discharge Plan - Discharge Data Disposition: Disch To Home/Self Care Condition at Discharge: Stable Discharge Diet: other (continue protocol for procedure) Activity: resume usual activities as tolerated Contact your physician if you experience:: fever over 101, Difficulty voiding, Redness or swelling, Nausea/Vomiting, pain uncontrolled by pain medications - Discharge Medications New Polyethylene Glycol Powder [Miralax] 17 gm PO DAILY Prochlorperazine Tab [Compazine Tab] 5 mg PO Q8H PRN #30 tablet PRN Reason: Nausea/Vomiting Scopolamine 1.5 mg Patch [Transderm Scop 1.5 mg/72 hr Patch] 1 patch TRANSDERM Q72H #10 patch Docusate Sodium Cap [Colace Cap] 100 mg PO BID capsule Ondansetron Tab [Zofran Tab] 4 mg PO Q6H PRN #40 tablet PRN Reason: Nausea/Vomiting Continue Gabapentin 400 mg PO BID Omeprazole 40 mg PO BID clonazePAM TAB [KlonoPIN] 1 mg PO BID Ondansetron [Ondansetron Odt] 4 mg PO Q4-6H PRN PRN Reason: Nausea/Vomiting Cyclobenzaprine [Flexeril] 10 mg PO BID PRN PRN Reason: MUSCLE SPASMS Hydrocodone/Acetaminophen [Quail 10-325 Tablet] 10 mg PO BID Discontinued Promethazine Tab [Phenergan Tab] 25 mg PO Q6H PRN PRN Reason: Nausea Metoclopramide Tab [Reglan Tab] 5 mg PO ACHS - Follow Up or Referral Follow Up: Devan Chaidez MD [Physician] - 1 Week - Forms/Instructions Instructions: Prochlorperazine (By mouth), Ondansetron (By mouth), Scopolamine (Absorbed through the skin) Exam - Constitutional Vitals: Period Temp Pulse Resp BP Sys/Ward Pulse Ox Last 24 Hr 96.8 F-98.3 F 71-98 16-20 103-131/46-90 93-99 Discharge Results Procedures and tests throughout hospitalization: Pending Orders 01/02/17 18:15 TSH, Sensitive, S Routine none; TSH is pending - Imaging and Cardiology Procedure: CT Abdomen and Pelvis: image reviewed by me, report reviewed by me ( no acute process) DS: Provider Date of admission: 01/02/17 14:45 Primary care physician: Albania Ventura MD Attending physician on admission: Devan Chaidez MD Consults: 01/02/17 15:42 Consult to Physician [CONS] Routine Comment: ibs with constipation/gastric sleeve patient Consulting Provider: Gerson Paez Consulting Provider Notified: Yes When should Consulting Provider be notified: Now Consult to Specialist Group: Gastroenterology When should Consulting Provider be notified: Now Person Notified: MONICA Date Notified: 01/02/17 Time Notified: 15:56 Discharging clinician: Kelly Whitehead PA-C
[2017-01-04] MEDS ORDERED: POLYETHYLENE GLYCOL POWDER 17 GM PACK PO SCH (09:00)
[2017-01-04] MEDS ORDERED: DOCUSATE SODIUM 100 MG CAPSULE PO SCH (09:00)
[2017-01-04] MEDS: GABAPENTIN 400 MG CAPSULE PO SCH (09:09)
[2017-01-04] MEDS: clonazePAM 0.5 MG TABLET PO SCH (09:09)
[2017-01-04] MEDS: PANTOPRAZOLE 40 MG VIAL IV SCH (09:14)
== END 2017-01-04 09:15 | disposition home or self-care (01) ==
LOC: N.4E
PROVIDERS: ADMIT Surgery; ATTEND Surgery

== ENCOUNTER 2017-01-16 15:21 | Inpatient (IN) ==
[2017-01-16] MEDS ORDERED: ACETAMINOPHEN 325 MG TABLET PO PRN (15:32)
[2017-01-16] MEDS ORDERED: ONDANSETRON 4 MG/2 ML VIAL IV PRN (15:32)
--- NOTE | 2017-01-16 16:16 | General Surg History&Physical ---
Assessment and Plan (1) Nausea Status: Acute Assessment and plan: Patient is approximately 7 weeks status post robotic gastric sleeve placement. Reports she reports persistent nausea and difficulty with oral intake which have worsened in the past few days as she is also ran out of her scopolamine patch. Labs are currently pending. We will treat with anti-emetics and IV fluids and await ordered labs for additional treatment plan. Current Visit: Yes (2) Flank pain Status: Acute Assessment and plan: Patient has flank pain with history of nephrolithiasis and signs and symptoms of urinary hesitancy. We will check a urinalysis and CT scan for stones. Check CBC. We will follow-up on lab results and radiographic imaging for further assessment and plan. Current Visit: Yes (3) Fibromyalgia Status: Acute Assessment and plan: Resume home meds. Patient reports that she has been able to obtain refills. Current Visit: Yes History of Present Illness Chief complaint: Nausea and weakness History of present illness: Ms. Araiza is a 41 year old female status post robotic gastric sleeve on 2016. She is required 2 hospitalizations in the interim 12/09/2016 and 2016 for dehydration. She has also suffered nephrolithiasis requiring lithotripsy and ureteral stent placements in the interim as well; these procedures were performed at an outside facility. She reports persistent nausea since her previous at admission with difficulty with oral intake. She describes worsening weakness beginning towards the end of last week and diffuse myalgias with localized right flank pain which has been persistent without worsening. She also describes urinary symptoms including hesitancy without dysuria, hematuria, or malodor. She reports she is able to take her home medications, but unable to tolerate her vitamins. She reports low-grade fever and agrees recorded temp oral, she has had 4 bowel movements today all which were soft not described as diarrhea. Home Medications Medication Instructions Recorded Confirmed Type Cyclobenzaprine [Flexeril] 10 mg PO BID PRN 12/09/16 01/02/17 History Gabapentin 400 mg PO BID 12/09/16 01/02/17 History Omeprazole 40 mg PO BID 12/09/16 01/02/17 History Ondansetron [Ondansetron Odt] 4 mg PO Q4-6H PRN 12/31/16 01/02/17 History Hydrocodone/Acetaminophen [Dora 10 mg PO BID 01/02/17 01/02/17 History 10-325 Tablet] Docusate Sodium Cap [Colace Cap] 100 mg PO BID capsule 01/04/17 Rx Hydrocodone/Acetaminophen [Dora 1 each PO Q6H PRN #28 tablet 01/04/17 Rx 10-325 Tablet] Omeprazole 40 mg PO DAILY #10 capsule 01/04/17 Rx Ondansetron Tab [Zofran Tab] 4 mg PO Q6H PRN #40 tablet 01/04/17 Rx Polyethylene Glycol Powder 17 gm PO DAILY 01/04/17 Rx [Miralax] Prochlorperazine Tab [Compazine 5 mg PO Q8H PRN #30 tablet 01/04/17 Rx Tab] Scopolamine 1.5 mg Patch 1 patch TRANSDERM Q72H #10 patch 01/04/17 Rx [Transderm Scop 1.5 mg/72 hr Patch] clonazePAM TAB [KlonoPIN] 1 tablet PO BID #14 01/04/17 Rx Allergies Allergy/AdvReac Type Severity Reaction Status Date / Time adhesive tape Allergy Mild RASH Verified 11/29/16 06:48 morphine Allergy Mild RASH Verified 11/29/16 06:48 chloraprep Allergy Mild Redness of Uncoded 11/29/16 06:56 Skin Medical,Surgical,& Family Hx - Medical History Psychological: History of: Anxiety Disorders, Depression, Previous Suicide Attempt (3 years and 18 years ago.) No history of: ADHD, Behavior Problems, Psychiatric/Substance Abuse Tx, Schizophrenia, Violent Behavior, Psychiatric Problems Neurology: History of: Migraine (OCCASIONAL. DR SPRINGER.) No history of: Brain Aneurysm, Cerebral Hemorrhage, Cerebrovascular Accident , Cerebral Palsy, Multiple Sclerosis, Parkinson's Disease, Peripheral Neuropathy , Seizures, TIA, Vertigo, Neurologocal Cancer HEENT: History of: Eye Problem (GLASSES) Rheumatology: History of;: Fibromyalgia Respiratory: History of: Respiratory Problems (FLU VAC-YES; PNEU VAC- YES. SLEEP APOXIA 2 L AT BEDTIME.) Renal: No history of: Renal (Kidney) Cancer, Dialysis, Renal Failure, Renal Problems Genitourinary: History of: Kidney Stones (lithotripsy and stent placement.) No history of: Bladder Problem, Recurring Urinary Tract Infections, Genitourinary Cancer, Problems Gastrointestinal: History of: GERD, GI Problems (IBS) Other: History of: Anesthesia Reactions (NAUSEA) - Surgical History Thoracic Surgeries: Surgical HX of;: Lithotripsy Patient denies;: Kidney (Renal Surgery), Nephrectomy, Lobectomy Neurologic Surgeries: Patient denies: Brain Aneurysm, Cerebral Hemorrhage, Neurologic Surgery HEENT Surgeries: Surgical HX of: Eye Surgery (EYE SURGERY X6), Tonsilectomy & Adenoidectomy Abdominal Surgeries: Surgical HX of: Abdominal Surgery (GASTRIC SLEEVE), Appendectomy, Cholecystectomy, Colonoscopy, EGD, Hernia Repair Reproductive Surgeries: Surgical HX of;: Section (X3), Hysterectomy Patient denies;: Cystoscopy, Genitourinary Surgery Orthopedic Surgeries: Surgical HX of;: Implanted Devices (TITANIUM PLATES AND SCREWS.) - Family History Family History: Reports;: Family Cancer, Family Hypertension - Social History Smoking Status: Former smoker Exam - Constitutional General appearance: no acute distress, over weight - Head Head exam: Present: atraumatic - Eye Eye exam: Absent: scleral icterus - Respiratory Respiratory exam: Present: clear to auscultation bilaterally - Cardiovascular Cardiovascular exam: Present: RRR - GI/Abdominal GI/Abdominal exam: Present: normal bowel sounds, soft, other (Positive right- sided CVA tenderness). Absent: distended - Neurological Exam Neurological exam: Present: alert, oriented X3 Speech: Present: normal - Skin Skin exam: Present: normal color - Constitutional Constitutional: Present: as per HPI - EENT Nose, mouth and throat: Absent: dysphagia - Cardiovascular Cardiovascular: Absent: chest pain at rest, orthopnea - Respiratory Respiratory: Absent: cough, wheezing - Gastrointestinal Gastrointestinal: Present: as per HPI - Genitourinary Genitourinary: Present: as per HPI - Musculoskeletal Musculoskeletal: Present: as per HPI Quality Measures - VTE Contraindication to Pharmacological VTE Prophylaxis: High Risk of Bleeding
[2017-01-16 16:31] LABS: Basophils # 0.1 10*3/uL (0.0-0.2); Basophils % 0.6 % (0.0-0.8); Eosinophils # 0.1 10*3/uL (0.0-0.87); Eosinophils % 0.9 % (0.00-10.9); Hematocrit 43.2 VOL% (35.7-47.0); Hemoglobin 14.5 GM/DL (12.0-16.0); Immature Granulocytes % 0.2 %; Immature Granulocytes Absolute 0.02 #; Lymphocytes # 2.5 10*3/uL (1.4-4.0); Lymphocytes % 27.6 % (21.3-54.2); Mean Corpuscular HGB Conc 33.6 GM/DL (32-36); Mean Corpuscular Hemoglobin 28 PG (27-34); Mean Corpuscular Volume 84.5 FL (87-102); Mean Platelet Volume 11.9 FL (9.6-12.0); Monocytes # 0.7 10*3/uL (0.11-0.8); Monocytes % 7.8 % (1.7-12.7); Neutrophils # 5.7 10*3/uL (1.4-7.4); Neutrophils % 62.9 % (38.7-73.9); Platelet Count 236 T/CUMM (130-400); Red Blood Count 5.11 MC/CUMM (3.8-5.5); Red Cell Distribution Width 14.8 % (9.3-17.3)
[2017-01-16 16:39] LABS: Albumin 4.6 G/DL (3.4-5.0); Bilirubin,Total 0.4 MG/DL (0.2-1.0); Calcium 10.1 MG/DL (8.5-10.1); Osmolality,Calculated 281.4 MOS/KG (273-304); Potassium 3.7 MMOL/L (3.5-5.1); Total Protein 8.1 G/DL (6.4-8.3)
[2017-01-16] MEDS ORDERED: INFLUENZA VIRUS VACCINE 0.5 ML SYRINGE IM ONE (17:05)
[2017-01-16] MEDS: HYDROmorphone 2 MG/1 ML VIAL IV PRN ×2 (18:03→22:42)
[2017-01-16] MEDS: PANTOPRAZOLE 40 MG VIAL IV SCH (18:08)
[2017-01-16] MEDS: LACTATED RINGERS 1,000 ML IV SCH (18:10)
[2017-01-16 18:22] LABS: Apearance,Urine Slightly Hazy (Clear); Blood, Urine Negative (Negative); Calcium Oxalate Crystals,Urine Occasional /HPF (Few); Glucose,Urine (UA) Negative (Negative); Ketones,Urine 80 mg/dL (Negative); Mucus,Urine Many /LPF (Occasional); Nitrite,Urine Negative (Negative); Protein,Urine 30 MG/DL; RBC,Urine <1 /HPF (0-4); Squamous Epithelial Cell,Urine Occasional /HPF (0-10); Urine Color Amber (Yellow); Urine Specific Gravity 1.031 (1.001-1.035); WBC,Urine 4 /HPF (0-6)
[2017-01-16 18:23] LABS: Bilirubin,Urine Small mg/dL (Negative)
--- NOTE | 2017-01-16 18:38 | CT Report ---
Exam: CT abdomen and pelvis without intravenous contrast Exam date: 01/16/2017 4: 44 PM Clinical History: 41 years,Female, right flank pain abdominal pain, generalized Technique: Axial computed tomography images of the abdomen and pelvis without intravenous contrast. All CT scans at this facility use one or more dose reduction techniques. Automated exposure control, MA/KV adjustment per patient size (including targeted exam Square dose is matched to indication) or iterative reconstruction technique Comparison: January 02, 2017 Findings: Lower thorax: No acute pathology within the lung bases. Abdomen: Liver: Unremarkable Gallbladder and bile ducts: Prior cholecystectomy. Pancreas: Pancreas is normal. Spleen: Spleen is normal. Adrenals: No adrenal mass. Kidneys and ureters: Normal in size, echotexture and morphology. No hydronephrosis. No ureteral calculus. Stomach and bowel: Prior gastric bypass. Appendix: Nonvisualized. Pelvis: Bladder: Unremarkable Reproductive: Prior hysterectomy. Abdomen and pelvis: Intraperitoneal space: No pneumoperitoneum. No free intraperitoneal fluid Bones/joints: No acute osseous abnormality. Soft tissues: No mass. Stable stranding within the anterior abdominal wall soft tissues Vasculature: No aortic aneurysm. Atheromatous calcifications noted along the aorta and branch vessels. Lymph nodes: No adenopathy Impression: 1. No acute findings to explain patient's symptoms. Incidental findings as discussed above PROCEDURE INTERPRETED AT [facility] DEPARTMENT OF RADIOLOGY Final Report Signed by: Abdirizak Cruz MD
[2017-01-16] MEDS ORDERED: PROCHLORPERAZINE 5 MG TABLET PO PRN (18:40)
[2017-01-16] MEDS ORDERED: SCOPOLAMINE 1.5 MG PATCH TRANSDERM SCH (19:00)
[2017-01-16] MEDS: GABAPENTIN 400 MG CAPSULE PO SCH (22:32)
[2017-01-16] MEDS: clonazePAM 0.5 MG TABLET PO SCH (22:33)
[2017-01-16] MEDS: ONDANSETRON 4 MG/2 ML VIAL IV PRN (22:40)
[2017-01-17] MEDS: LACTATED RINGERS 1,000 ML IV SCH ×3 (01:34→16:16)
[2017-01-17] MEDS: ONDANSETRON 4 MG/2 ML VIAL IV PRN ×4 (02:58→20:21)
[2017-01-17] MEDS: HYDROmorphone 2 MG/1 ML VIAL IV PRN ×3 (03:00→11:17)
[2017-01-17] MEDS: GABAPENTIN 400 MG CAPSULE PO SCH ×2 (08:50→20:10)
[2017-01-17] MEDS: diphenhydrAMINE CAP 25 MG CAPSULE PO PRN ×2 (08:50→20:21)
[2017-01-17] MEDS: clonazePAM 0.5 MG TABLET PO SCH ×2 (08:51→20:10)
[2017-01-17] MEDS: PANTOPRAZOLE 40 MG VIAL IV SCH (08:51)
[2017-01-17] MEDS ORDERED: PANTOPRAZOLE 40 MG TABLET PO SCH (09:00)
--- NOTE | 2017-01-17 09:57 | General Surgery Progress Note ---
Assessment and Plan (1) Nausea Status: Acute Assessment and plan: Patient is approximately 7 weeks status post robotic gastric sleeve placement. Patient feels somewhat improved today. We will continue antiemetics as needed. Upper GI series pending for today. Continue IV hydration. Current Visit: Yes (2) Flank pain Status: Acute Assessment and plan: No evidence of nephrolithiasis on CT scan. Continue analgesics as needed. Will check chest x-ray. Current Visit: Yes (3) Fibromyalgia Status: Acute Assessment and plan: Resume home meds. Patient reports that she has been able to obtain refills. Current Visit: Yes Subjective Patient reports: Present: no new complaints, other (The patient is sitting up in bed reporting she feels somewhat improved but still unwell. She tolerated clears this morning without severe nausea or vomiting. She has persistent right flank pain. No bowel movement today.) Exam - Constitutional Vitals: Period Temp Pulse Resp BP Sys/Ward Pulse Ox Last 24 Hr 97.1 F-97.6 F 63-84 20-23 105-145/58-77 98-100 General appearance: no acute distress, over weight - Head Head exam: Present: normocephalic - Neck Neck exam: Present: trachea midline - Respiratory Respiratory exam: Present: clear to auscultation bilaterally - Cardiovascular Cardiovascular exam: Present: RRR - GI/Abdominal GI/Abdominal exam: Present: normal bowel sounds, tenderness (Diffuse mild tenderness), soft. Absent: distended, firm - Neurological Exam Neurological exam: Present: alert, oriented X3 Speech: Present: normal - Skin Skin exam: Present: normal color, warm Results - Labs CBC & BMP: 01/16/17 15:54 01/16/17 15:54 Lab Results: I have reviewed the past 24 hour labs Labs: Urinalysis does not indicate infection; proteinuria and ketones noted - Diagnostic Findings Procedure: CT Abdomen and Pelvis: image reviewed by me, report reviewed by me ( No acute pathology. Gallbladder is absent.) Quality Measures - VTE Contraindication to Pharmacological VTE Prophylaxis: High Risk of Bleeding
--- NOTE | 2017-01-17 13:53 | XRay Report ---
XR chest 2V Indication: Chest pain Comparison: 13 Sep 2014 Findings: The heart and mediastinum are normal in size and configuration. The pulmonary vascularity is normal in caliber. No lung infiltrates, effusions, pneumothorax or other abnormality is demonstrated. Impression: Normal chest x-ray PROCEDURE INTERPRETED AT [facility] DEPARTMENT OF RADIOLOGY Final Report Signed by: Dr. Elvin Solo
--- NOTE | 2017-01-17 14:09 | Fluoroscopy Report ---
Upper GI series Indication: Nausea, recent gastric sleeve procedure Findings: The patient ingested barium under fluoroscopy. There was passage of contrast through the gastric sleeve into the distal stomach and small bowel. No abnormal contrast collections are leakage is identified. Fluoroscopy time 57 seconds Impression: Gastric sleeve procedure with expected postoperative appearance. PROCEDURE INTERPRETED AT [facility] DEPARTMENT OF RADIOLOGY Final Report Signed by: Dr. Elvin Solo
[2017-01-18] MEDS: LACTATED RINGERS 1,000 ML IV SCH ×2 (02:06→16:43)
[2017-01-18] MEDS: ONDANSETRON 4 MG/2 ML VIAL IV PRN ×2 (08:55→14:51)
[2017-01-18] MEDS: GABAPENTIN 400 MG CAPSULE PO SCH (08:58)
[2017-01-18] MEDS: clonazePAM 0.5 MG TABLET PO SCH (08:58)
[2017-01-18] MEDS: PANTOPRAZOLE 40 MG VIAL IV SCH (08:58)
--- NOTE | 2017-01-18 11:32 | Post Interventional Procedure ---
Pre-op diagnosis: nausea/abdominal pain h/o sleeve gastrectomy Post-op diagnosis: same Procedure: PICC placement Contrast: none Flouroscopy: 0.1 min Radiologist: Addison Turk Anesthesia: local Specimens: none sent Estimated blood loss: minimal (5 mL) Complications: none Condition: stable Description/Findings: left arm 5 Fr dual lumen picc placement done and ready to use Assessment and Plan - Time spent with patient Time spent with patient: Less than 30 minutes
--- NOTE | 2017-01-18 11:37 | Interventional Radiology Rpt ---
IR PICC line insertion, US guide vascular access IR PICC Placement Peripherally-inserted central catheter (PICC) placement using ultrasound and fluoroscopic guidance Ultrasound of the left upper extremity Clinical Information: 41-year-old female with history of sleeve gastrectomy and continued abdominal pain/nausea. PICC line is requested. Physician: Dr. Turk Procedure: The patient was advised of the benefits, risks, and alternatives of the procedure and informed consent was obtained. A time out was performed with verification of the patient's name, MRN, site of procedure, and type of procedure to be performed. The patient was positioned in the supine position on the angiographic table. The site was prepped and draped in the usual sterile fashion. Additionally, maximal sterile barrier technique was employed for the procedure. A rug underlay machine operator radiograph reveals no relevant abnormality. Ultrasound examination of the left arm demonstrates patent and compressible brachial and basilic veins. The left arm was prepped and draped in the usual sterile fashion. The left basilic vein was again identified. Using ultrasound guidance, a 21 gauge needle was used to access the vein. A permanent ultrasound recording of vascular access was obtained for the patient's record. A 0.018" cope wire was then advanced into the vein. The needle was exchanged for a 5 Haitian peel-away sheath. A 5 Haitian double lumen Bard Solo PICC catheter was measured and trimmed to the 39 cm ronald. The PICC line was advanced through the sheath and into the central circulation. The catheter tip was positioned at the cavo-atrial junction. The peel-away sheath was then removed. At the conclusion of the procedure, the catheter was secured in place using a Stat-Lock device. A sterile dressing was applied. The lumens aspirate and flush freely. The catheter is ready for immediate use. The patient tolerated the procedure well and was returned to the PRU in stable condition. EBL: < 5 mL. Complications: None. Fluoroscopy time: 0.1 minutes Total number of images for this study: 2 Conclusion: Successful placement of a 5 Haitian double lumen Bard Solo power injectable PICC via the left basilic vein. The catheter is ready for immediate use. PROCEDURE INTERPRETED AT [facility] DEPARTMENT OF RADIOLOGY Final Report Signed by: Addison Turk
--- NOTE | 2017-01-18 12:09 | Event Note ---
Afebrile vital signs stable. Nausea and vomiting slightly improved. She was able to keep some of the chicken down yesterday. Get her a PICC line today for outpatient fluids as needed. Her abdomen is soft nondistended with no significant tenderness. Incisions have healed well. Upper GI showed no abnormality. Contrast goes through the sleeve easily. She is asking for pain medicine and will make sure she is still under the care of chronic pain management before she leaves. I will see her back in the office in 1-2 weeks. Refill her scopolamine patches. She was instructed to increase her protein supplementation with Premier protein or protein powder added to soft food as tolerated.
--- NOTE | 2017-01-18 15:40 | Discharge Summary ---
Hospital Course - Hospital Course Hospital Course: Patient is a 41-year-old female approximately 7 weeks status post gastric sleeve who was referred to the hospital with persistent nausea for dehydration. CT scan of the abdomen and pelvis revealed no acute findings to explain symptomology; upper GI series was also performed and did not reveal any stricture or abnormal stenosis to explain the etiology. A PICC line was placed. The patient was tolerating liquids with protein supplementation and soft diet. She was discharged home with IV fluids every other day and anti- emetics and follow with Dr. Chaidez. Additionally, she was provided with follow -up with her pain management physician the following Monday as she missed this appointment. I spoke to the office directly and provided prescriptions with her permission until that follow-up appointment. No complications to note. Diagnosis - Discharge Diagnosis (1) Nausea Status: Acute (2) Flank pain Status: Acute (3) Fibromyalgia Status: Acute Specialty Discharge - Follow Up or Referrals Follow up with: Devan Chaidez MD [Physician] - (1-2 weeks) Discharge Plan - Discharge Data Disposition: Disch To Home/Self Care Condition at Discharge: Stable Discharge Diet: other (As instructed; liquid protein sedimentation and soft diet as tolerated) Driving: other (No driving while taking narcotics) Contact your physician if you experience:: fever over 101, Difficulty voiding, Redness or swelling, Nausea/Vomiting - Discharge Medications New Scopolamine 1.5 mg Patch [Transderm Scop 1.5 mg/72 hr Patch] 1 patch TRANSDERM Q3DAY #10 patch Continue Gabapentin 400 mg PO BID Ondansetron [Ondansetron Odt] 4 mg PO Q4-6H PRN PRN Reason: Nausea/Vomiting Prochlorperazine Tab [Compazine Tab] 5 mg PO Q8H PRN #30 tablet PRN Reason: Nausea/Vomiting Scopolamine 1.5 mg Patch [Transderm Scop 1.5 mg/72 hr Patch] 1 patch TRANSDERM Q72H #10 patch clonazePAM TAB [KlonoPIN] 1 tablet PO BID #14 Cyclobenzaprine [Flexeril] 10 mg PO TID PRN PRN Reason: Muscle Spasm Omeprazole 40 mg PO DAILY #10 capsule Changed Hydrocodone/Acetaminophen [[employer] 10-325 Tablet] 1 each PO Q12H PRN #12 tablet PRN Reason: Pain Moderate To Severe (4-10) - Follow Up or Referral Follow Up: Devan Chaidez MD [Physician] - (1-2 weeks) - Forms/Instructions Instructions: Acute Abdominal Pain (DC) Additional Discharge Instructions: Dr. Randee Moreland Pain mgmt on Monday @ 1:00PM Exam - Constitutional Vitals: Period Temp Pulse Resp BP Sys/Ward Pulse Ox Last 24 Hr 97.0 F-98.0 F 71-96 18-20 100-112/57-67 93-98 General appearance: no acute distress - Eye Eye exam: Absent: scleral icterus - Respiratory Respiratory exam: Present: clear to auscultation bilaterally - Cardiovascular Cardiovascular exam: Present: regular rate and rhythm - GI/Abdominal GI/Abdominal exam: Present: normal bowel sounds, soft. Absent: distended, tenderness - Neurological Exam Neurological exam: Present: alert, oriented X3 - Skin Skin exam: Present: normal color Discharge Results - Imaging and Cardiology Procedure: Abdominal x-ray: image reviewed by me, report reviewed by me (No acute finding), X-ray: image reviewed by me, report reviewed by me (Upper GI series; expected postoperative changes gastric sleeve) DS: Provider Date of admission: 01/16/17 15:32 Primary care physician: Albania Ventura MD Attending physician on admission: Devan Chaidez MD Consults: 01/16/17 17:07 Consult to Pastoral Services [CONS] Routine Comment: Pastoral Screen: Request Strategy Intern Visit Pastoral Screen Source of Request: Patient 01/17/17 14:27 Consult to Case Mgmt/Social Srvs [CONS] Routine Reason for Case Mgmt/Social Srvs: Home IV Therapy Consult Comment: 1L LR infusion every other day thru PICC 01/17/17 15:08 Consult to Case Mgmt/Social Srvs [CONS] Routine Reason for Case Mgmt/Social Srvs: Home Health Home IV Therapy Consult Comment: [facility]. Discharging clinician: Kelly Whitehead PA-C
[2017-01-18 17:26] VITALS: BP 134/71
== END 2017-01-18 17:25 | disposition home or self-care (01) | DRG 392 ==
LOC: N.3E 15:32
PROVIDERS: ADMIT Surgery; ATTEND Surgery

== ENCOUNTER 2017-02-01 06:29 | Inpatient (IN) ==
[2017-02-01] MEDS ORDERED: ONDANSETRON 4 MG/2 ML VIAL IV STA ×2 (06:42→08:09)
[2017-02-01] MEDS ORDERED: KETOROLAC 30 MG/1 ML VIAL IV STA (06:42)
[2017-02-01] MEDS ORDERED: KETOROLAC 30 MG/1 ML VIAL ONE (06:51)
[2017-02-01] MEDS ORDERED: ONDANSETRON 4 MG/2 ML VIAL ONE ×2 (06:51→08:10)
[2017-02-01] MEDS ORDERED: ACETAMINOPHEN 325 MG TABLET PO PRN (07:32)
[2017-02-01] MEDS ORDERED: HYDROmorphone 2 MG/1 ML VIAL IV STA (08:09)
[2017-02-01] MEDS ORDERED: HYDROmorphone 2 MG/1 ML VIAL ONE (08:10)
[2017-02-01] MEDS: DEXTROSE 5% NACL 0.45% 1,000 ML IV SCH ×3 (09:35→18:58)
[2017-02-01] MEDS: KETOROLAC 15 MG/1 ML VIAL IV PRN ×3 (09:36→21:55)
[2017-02-01] MEDS: PANTOPRAZOLE 40 MG TABLET PO SCH (10:15)
[2017-02-01] MEDS ORDERED: SCOPOLAMINE 1.5 MG PATCH TRANSDERM SCH (12:30)
[2017-02-01] MEDS ORDERED: chlorproMAZINE 25 MG/1 ML AMP IM PRN (12:31)
[2017-02-01] MEDS: ONDANSETRON 4 MG/2 ML VIAL IV PRN ×2 (12:52→18:58)
[2017-02-01] MEDS: CIPROFLOXACIN INJ 400 MG in PREMIX 1 EACH IV SCH (15:44)
[2017-02-01] MEDS ORDERED: SODIUM PHOSPHATE ENEMA 133 ML BOTTLE RECTAL ONE ×2 (17:37→17:38)
[2017-02-02] MEDS: KETOROLAC 15 MG/1 ML VIAL IV PRN ×4 (04:14→22:52)
[2017-02-02] MEDS: ONDANSETRON 4 MG/2 ML VIAL IV PRN ×4 (04:14→22:52)
[2017-02-02] MEDS: CIPROFLOXACIN INJ 400 MG in PREMIX 1 EACH IV SCH ×2 (04:19→16:48)
[2017-02-02] MEDS: DEXTROSE 5% NACL 0.45% 1,000 ML IV SCH ×3 (04:20→16:49)
[2017-02-02 05:28] LABS: Calcium 8.7 MG/DL (8.5-10.1); Osmolality,Calculated 278.4 MOS/KG (273-304); Potassium 3.3 MMOL/L (3.5-5.1)
[2017-02-02] MEDS ORDERED: POTASSIUM CHLORIDE RIDER 10 MEQ in PREMIX 1 EACH IV PRN (08:56)
[2017-02-02] MEDS: PANTOPRAZOLE 40 MG TABLET PO SCH (09:24)
[2017-02-02] MEDS: POTASSIUM CHLORIDE RIDER 100 ML IV SCH ×2 (10:48→13:00)
[2017-02-02] MEDS ORDERED: ENOXAPARIN 40 MG/0.4 ML SYRINGE SUBCUT SCH (17:00)
[2017-02-02] MEDS: GABAPENTIN 400 MG CAPSULE PO SCH (21:04)
[2017-02-03 05:46] LABS: Calcium 8.4 MG/DL (8.5-10.1); Potassium 3.4 MMOL/L (3.5-5.1)
[2017-02-03] MEDS ORDERED: LINACLOTIDE 145 MCG CAPSULE PO SCH (07:30)
[2017-02-03] MEDS: ONDANSETRON 4 MG/2 ML VIAL IV PRN (07:48)
[2017-02-03] MEDS: KETOROLAC 15 MG/1 ML VIAL IV PRN (07:49)
[2017-02-03] MEDS: GABAPENTIN 400 MG CAPSULE PO SCH (10:07)
[2017-02-03] MEDS: PANTOPRAZOLE 40 MG TABLET PO SCH (10:07)
[2017-02-03] MEDS: DEXTROSE 5% NACL 0.45% 1,000 ML IV SCH ×2 (10:09→14:15)
[2017-02-03 11:37] VITALS: BP 113/67
[2017-02-03] MEDS ORDERED: HEPARIN LOCK FLUSH 500 UNIT/5 ML SYRINGE IV ONE ×2 (13:32)
[2017-02-05] MEDS ORDERED: CIPROFLOXACIN 500 MG TABLET PO SCH (21:00)
== END 2017-02-03 13:50 | disposition home health service (06) | DRG 392 ==
LOC: EDUNIT# → EDBD → N.EDINP 06:29 → N.ED 06:29 → N.4E 08:45
PROVIDERS: ADMIT Surgery; ATTEND Surgery

== ENCOUNTER 2017-04-19 11:56 | Observation (INO) ==
[2017-04-19] MEDS ORDERED: HYDROmorphone 2 MG/1 ML VIAL IV STA (15:13)
[2017-04-19] MEDS ORDERED: ONDANSETRON 4 MG/2 ML VIAL IV STA (15:13)
[2017-04-19] MEDS ORDERED: SODIUM CHLORIDE 0.9% 1,000 ML IV STA (15:13)
[2017-04-19 15:22] LABS: Basophils # 0.1 10*3/uL (0.0-0.2); Basophils % 0.5 % (0.0-0.8); Eosinophils # 0.1 10*3/uL (0.0-0.87); Eosinophils % 1.4 % (0.00-10.9); Hemoglobin 15.8 GM/DL (12.0-16.0); Immature Granulocytes % 0.4 %; Immature Granulocytes Absolute 0.04 #; Lymphocytes # 2.3 10*3/uL (1.4-4.0); Lymphocytes % 23.3 % (21.3-54.2); Mean Corpuscular HGB Conc 33.6 GM/DL (32-36); Mean Corpuscular Hemoglobin 29 PG (27-34); Mean Corpuscular Volume 86.2 FL (87-102); Mean Platelet Volume 10.2 FL (9.6-12.0); Monocytes # 0.6 10*3/uL (0.11-0.8); Monocytes % 5.9 % (1.7-12.7); Neutrophils # 6.7 10*3/uL (1.4-7.4); Neutrophils % 68.5 % (38.7-73.9); Platelet Count 274 T/CUMM (130-400); Red Blood Count 5.45 MC/CUMM (3.8-5.5); Red Cell Distribution Width 14.5 % (9.3-17.3); White Blood Count 9.8 T/CUMM (4-12)
[2017-04-19] MEDS ORDERED: ONDANSETRON 4 MG/2 ML VIAL ONE (15:28)
[2017-04-19 15:31] LABS: Alanine Aminotransferase 30 U/L (13-56); Albumin 4.5 G/DL (3.4-5.0); Alkaline Phosphatase 73 U/L (45-117); Aspartate Amino Transferase 15 U/L (0-37); Bilirubin,Total < 0.39 MG/DL (0.2-1.0); Blood Urea Nitrogen 18 MG/DL (7-18); Calcium 9.8 MG/DL (8.5-10.1); Glucose 94 MG/DL (74-106); Osmolality,Calculated 280.4 MOS/KG (273-304); Potassium 3.7 MMOL/L (3.5-5.1); Sodium 140 MMOL/L (136-145); Total Protein 8.6 G/DL (6.4-8.3)
[2017-04-19] MEDS ORDERED: HYDROmorphone 2 MG/1 ML VIAL IV PRN (19:35)
[2017-04-19] MEDS ORDERED: ACETAMINOPHEN 325 MG TABLET PO PRN (19:35)
[2017-04-19] MEDS ORDERED: PROMETHAZINE 25 MG/1 ML VIAL IM PRN (19:35)
[2017-04-19] MEDS: DEXTROSE 5% NACL 0.45% 1,000 ML IV SCH (21:35)
[2017-04-19] MEDS: HYDROcod/ACETAMIN 7.5-325 MG/15 ML UDCUP PO PRN (23:27)
[2017-04-19] MEDS: ONDANSETRON 4 MG/2 ML VIAL IV PRN (23:31)
[2017-04-20] MEDS: DEXTROSE 5% NACL 0.45% 1,000 ML IV SCH ×3 (05:56→22:39)
[2017-04-20] MEDS: HYDROcod/ACETAMIN 7.5-325 MG/15 ML UDCUP PO PRN ×4 (06:14→20:06)
[2017-04-20] MEDS: ONDANSETRON 4 MG/2 ML VIAL IV PRN ×4 (06:14→20:07)
[2017-04-20 08:23] LABS: Calcium 8.8 MG/DL (8.5-10.1); Osmolality,Calculated 283.3 MOS/KG (273-304); Potassium 3.7 MMOL/L (3.5-5.1)
[2017-04-20 08:35] LABS: 25 Hydroxy Vitamin D Total 29.2 NG/ML
[2017-04-20] MEDS ORDERED: CYCLOBENZAPRINE 10 MG TABLET PO PRN (08:36)
[2017-04-20] MEDS ORDERED: clonazePAM 0.5 MG TABLET PO PRN (08:36)
[2017-04-20] MEDS ORDERED: VORTIOXETINE HYDROBROMIDE PO SCH (09:00)
[2017-04-20] MEDS ORDERED: Linaclotide [Linzess] 72 MCG PO SCH (09:00)
[2017-04-20 09:16] LABS: Calcium 8.8 MG/DL (8.5-10.1); Osmolality,Calculated 281.4 MOS/KG (273-304); Potassium 3.8 MMOL/L (3.5-5.1)
[2017-04-20] MEDS: THIAMINE 200 MG/2 ML VIAL IV SCH (09:40)
[2017-04-20] MEDS: MULTIVITAMIN (CENTRUM) TABLET PO SCH (09:40)
[2017-04-20] MEDS: GABAPENTIN 400 MG CAPSULE PO SCH ×2 (09:40→20:07)
[2017-04-20] MEDS: PANTOPRAZOLE 40 MG TABLET PO SCH (09:40)
[2017-04-20] MEDS ORDERED: Suvorexant [Belsomra] 10 MG PO SCH (21:00)
[2017-04-21] MEDS: ONDANSETRON 4 MG/2 ML VIAL IV PRN ×3 (04:50→15:06)
[2017-04-21] MEDS: HYDROcod/ACETAMIN 7.5-325 MG/15 ML UDCUP PO PRN ×3 (04:50→15:01)
[2017-04-21] MEDS: DEXTROSE 5% NACL 0.45% 1,000 ML IV SCH (08:50)
[2017-04-21] MEDS: MULTIVITAMIN (CENTRUM) TABLET PO SCH (08:50)
[2017-04-21] MEDS: PANTOPRAZOLE 40 MG TABLET PO SCH (08:51)
[2017-04-21] MEDS: THIAMINE 200 MG/2 ML VIAL IV SCH (08:51)
[2017-04-21] MEDS: GABAPENTIN 400 MG CAPSULE PO SCH (08:51)
[2017-04-21 18:24] VITALS: BP 146/86
== END 2017-04-21 16:54 | disposition home or self-care (01) ==
LOC: N.EDINP 11:56 → N.ED 11:56 → N.2E 19:44
PROVIDERS: ADMIT Surgery; ATTEND Surgery

== ENCOUNTER 2017-07-17 09:10 | Observation (INO) ==
[2017-07-17] MEDS ORDERED: ONDANSETRON 4 MG/2 ML VIAL IV STA (11:04)
[2017-07-17] MEDS ORDERED: SODIUM CHLORIDE 0.9% 1,000 ML IV STA (11:05)
[2017-07-17] MEDS ORDERED: ONDANSETRON 4 MG/2 ML VIAL ONE (11:12)
[2017-07-17 11:17] LABS: Apearance,Urine CLEAR (Clear); Bacteria,Urine Few /HPF (Few); Bilirubin,Urine Negative (Negative); Blood, Urine Negative (Negative); Glucose,Urine (UA) Negative (Negative); Ketones,Urine Negative (Negative); Nitrite,Urine Negative (Negative); Protein,Urine Negative; RBC,Urine <1 /HPF (0-4); Squamous Epithelial Cell,Urine Occasional /HPF (0-10); Urine Color Straw (Yellow); Urine Specific Gravity 1.006 (1.001-1.035); Urine Urobilinogen < 2.0 EU/DL (0.2-1.0); WBC,Urine <1 /HPF (0-6)
[2017-07-17 11:34] LABS: Basophils # 0.1 10*3/uL (0.0-0.2); Basophils % 0.4 % (0.0-0.8); Eosinophils # 0.1 10*3/uL (0.0-0.87); Eosinophils % 0.7 % (0.00-10.9); Hematocrit 41.2 VOL% (35.7-47.0); Hemoglobin 13.8 GM/DL (12.0-16.0); Immature Granulocytes % 0.5 %; Immature Granulocytes Absolute 0.06 #; Lymphocytes # 2.9 10*3/uL (1.4-4.0); Lymphocytes % 23.9 % (21.3-54.2); Mean Corpuscular HGB Conc 33.5 GM/DL (32-36); Mean Corpuscular Hemoglobin 30 PG (27-34); Mean Corpuscular Volume 89.8 FL (87-102); Mean Platelet Volume 9.8 FL (9.6-12.0); Monocytes # 0.7 10*3/uL (0.11-0.8); Monocytes % 5.9 % (1.7-12.7); NRBC # 0.02 10*3/uL; Neutrophils # 8.3 10*3/uL (1.4-7.4); Neutrophils % 68.6 % (38.7-73.9); Platelet Count 238 T/CUMM (130-400); Red Blood Count 4.59 MC/CUMM (3.8-5.5); Red Cell Distribution Width 13.4 % (9.3-17.3); White Blood Count 12.1 T/CUMM (4-12)
[2017-07-17 11:58] LABS: Albumin 4.3 G/DL (3.4-5.0); Bilirubin,Total 0.4 MG/DL (0.2-1.0); Calcium 9.4 MG/DL (8.5-10.1); Osmolality,Calculated 279.4 MOS/KG (273-304); Potassium 4.3 MMOL/L (3.5-5.1); Total Protein 7.6 G/DL (6.4-8.3)
[2017-07-17] MEDS ORDERED: PROMETHAZINE INJ 12.5 MG in SODIUM CHLORIDE 0.9% 50 ML IV STA (12:25)
[2017-07-17] MEDS ORDERED: HYDROmorphone 2 MG/1 ML VIAL IV STA (12:25)
[2017-07-17] MEDS ORDERED: HYDROmorphone 2 MG/1 ML VIAL ONE (12:26)
[2017-07-17] MEDS ORDERED: PROMETHAZINE 25 MG/1 ML VIAL ONE (12:26)
[2017-07-17] MEDS: HYDROmorphone 2 MG/1 ML VIAL IV PRN ×2 (16:15→20:16)
[2017-07-17] MEDS: DEXTROSE 5% NACL 0.45% 1,000 ML IV SCH ×2 (16:15→23:44)
[2017-07-17] MEDS: ONDANSETRON 4 MG/2 ML VIAL IV PRN ×2 (16:16→22:48)
[2017-07-17] MEDS: PROMETHAZINE 25 MG/1 ML VIAL IM PRN (18:10)
[2017-07-18] MEDS: HYDROmorphone 2 MG/1 ML VIAL IV PRN ×3 (00:27→09:42)
[2017-07-18] MEDS: PROMETHAZINE 25 MG/1 ML VIAL IM PRN (03:32)
[2017-07-18 05:27] LABS: Basophils % 0.4 % (0.0-0.8); Eosinophils # 0.2 10*3/uL (0.0-0.87); Eosinophils % 2.1 % (0.00-10.9); Hematocrit 35.9 VOL% (35.7-47.0); Immature Granulocytes % 0.4 %; Immature Granulocytes Absolute 0.04 #; Lymphocytes # 3.3 10*3/uL (1.4-4.0); Lymphocytes % 36.3 % (21.3-54.2); Mean Corpuscular Hemoglobin 30 PG (27-34); Mean Corpuscular Volume 92.5 FL (87-102); Mean Platelet Volume 10.5 FL (9.6-12.0); Monocytes # 0.8 10*3/uL (0.11-0.8); Monocytes % 9.1 % (1.7-12.7); Neutrophils # 4.7 10*3/uL (1.4-7.4); Neutrophils % 51.7 % (38.7-73.9); Platelet Count 207 T/CUMM (130-400); Red Blood Count 3.88 MC/CUMM (3.8-5.5); Red Cell Distribution Width 13.4 % (9.3-17.3); White Blood Count 9.1 T/CUMM (4-12)
[2017-07-18 05:41] LABS: Hemoglobin 11.5 GM/DL (12.0-16.0)
[2017-07-18] MEDS: ONDANSETRON 4 MG/2 ML VIAL IV PRN (05:45)
[2017-07-18] MEDS: DEXTROSE 5% NACL 0.45% 1,000 ML IV SCH (07:34)
[2017-07-18] MEDS ORDERED: PANTOPRAZOLE 40 MG TABLET PO SCH (09:00)
[2017-07-18] MEDS ORDERED: ONDANSETRON 4 MG/2 ML VIAL IV PRN (09:28)
[2017-07-18] MEDS ORDERED: LIDOCAINE 100 MG/5 ML SYRINGE ONE (12:34)
[2017-07-18] MEDS ORDERED: PROPOFOL 200 MG/20 ML VIAL IV ONE (12:34)
[2017-07-18] MEDS ORDERED: ACETAMINOPHEN 325 MG TABLET PO PRN (14:05)
[2017-07-18 19:53] VITALS: BP 135/72
== END 2017-07-18 15:21 | disposition home or self-care (01) ==
LOC: N.ED 09:10 → N.3E 09:10
PROVIDERS: ADMIT Surgery; ATTEND Surgery